=== PATIENT | male | born 1950 | race Hispanic/Latino ===

== ENCOUNTER 2020-01-21 20:53 | Emergency (ER) | payer OTHER, SELFPAY ==
[~2020-01-21 20:53] MED LIST: Iopamidol 370 76% 100 ML VIAL ONE
[2020-01-21] MEDS ORDERED: Octreotide Acetate 100 MCG/ML VIAL ONE (21:20)
[2020-01-21] MEDS ORDERED: Ondansetron PF 4 MG/2 ML Vial ONE (21:20)
[2020-01-21] MEDS ORDERED: Pantoprazole 40 MG VIAL ONE (21:20)
[2020-01-21 21:32] LABS: #Basophils 0.1 thou/uL (0.0-0.2); #Eosinphils 0.1 thou/uL (0.0-0.7); #Lymphocytes 1.6 thou/uL (1.20-3.40); #Monocytes 0.7 thou/uL (0.11-0.59); #Neutrophils 10.3 thou/uL (1.40-6.50); %Basophils 0.7 % (0.0-1.0); %Eosinophils 0.4 % (0.0-10.0); %Lymphocytes 12.7 % (21.0-51.0); %Monocytes 5.2 % (0.0-10.0); %Neutrophils 80.9 % (42.0-75.0); Hemoglobin 10.3 g/dL (14.0-18.0); INR-International Normal Ratio 1.1; Mean Corpuscular Hemoglobin 31.7 pg (27.0-31.0); Mean Platelet Volume 8.1 fL (7.4-10.4); Platelet Count 239 thou/uL (130-400); Prothrombin Time 13.7 sec (12.0-14.7); RBC Distribution Width 12.3 % (11.5-14.5); Red Blood Cell (RBC) Count 3.24 mill/uL (4.70-6.10); White Blood Cell (WBC) Count 12.7 thou/uL (4.8-10.8)
[2020-01-21 21:43] LABS: ALT (SGPT) 102 U/L (8-55); AST (SGOT) 70 U/L (5-34); Albumin 3.4 g/dL (3.4-4.8); Alkaline Phosphatase 101 U/L (40-110); Anion Gap 18 mmol/L (10-20); BUN (Urea Nitrogen) 27 mg/dL (8.4-25.7); Bilirubin, Total 0.3 mg/dL (0.2-1.2); Calc. Creatinine Clearance 0 mL/min (70-130); Calcium 7.9 mg/dL (7.8-10.44); Carbon Dioxide 19 mmol/L (23-31); Chloride 108 mmol/L (98-107); Estimated GFR-MDRD Greater than 90; Globulin 2.6 g/dL (2.4-3.5); Glucose 216 mg/dL (80-115); Lipase 20 U/L (8-78); Potassium 3.9 mmol/L (3.5-5.1); Sodium 141 mmol/L (136-145)
--- NOTE | 2020-01-22 07:07 | RAD ---
PORTABLE CHEST: Date: 01/21/2020 An AP portable film at 2124 hours is compared with an 12/31/2015 study. The heart is normal in size. The lungs are clear with no major infiltrate or effusion seen. Some old, healed rib fractures are noted on the right. The mediastinum shows no widening or shift. IMPRESSION: No acute thoracic findings. POS: HOME
--- NOTE | 2020-01-22 07:13 | CT ---
CT ABDOMEN AND PELVIS WITH CONTRAST: Date: 01/21/[address] of the abdomen and pelvis was done after giving IV contrast in this patient with abdominal distention and bloating. FINDINGS: The lung bases are clear. The stomach is mildly to moderately distended by fluid and foodstuff. There is some reflux into the lower esophagus. The wall of the distal esophagus may be minimally thickened . There is no significant distention of small bowel, though some loops are fluid-filled. This is a no nspecific finding and could be normal, or signify mild enteritis. Diffuse fatty infiltration of the l iver is seen. The pancreas, spleen, adrenal glands, kidneys, and abdominal aorta showed no acute find ings. No free air or free fluid was seen. The appendix appears normal. The colon shows no inflammatory jackson ges around it. CT of the pelvis showed no pelvic masses, fluid collections, or inflammatory changes. Degenerative changes are seen in the spine. IMPRESSION: 1. Gastric distention with a considerable amount of fluid within it. 2. Nonspecific bowel gas pattern with some fluid, but no distention. 3. Normal appearing appendix. 4. Gastroesophageal reflux. 5. Diffuse fatty infiltration of the liver. Preliminary report called to Dr. Perez at 2219 hours on 01/21/2020. CODE CR. POS: HOME
== END 2020-01-21 23:25 | disposition short-term general hospital (02) ==
LOC: BURERS 20:53
DX: K92.2 Gastrointestinal hemorrhage, unspecified (principal); F10.220 Alcohol dependence with intoxication, uncomplicated; R55 Syncope and collapse; F17.210 Nicotine dependence, cigarettes, uncomplicated
CPT/HCPCS: 36415; 36430; 71045; 74177; 80053; 82274; 83690; 84484; 85025; 85610; 86850; 86900; 86901; 93005; 96365; 96366; 96375; 96376; C9113; J2354; J2405; P9016; Q9967

== ENCOUNTER 2023-11-16 09:22 | Outpatient (CLI) | payer OTHER ==
[2023-11-16 10:11] LABS: #Basophils 0.2 thou/uL (0.0-0.2); #Eosinphils 0.4 thou/uL (0.0-0.7); #Neutrophils 4.4 thou/uL (1.40-6.50); %Basophils 2.4 % (0.0-1.0); %Eosinophils 5.4 % (0.0-10.0); %Lymphocytes 24.9 % (21.0-51.0); %Monocytes 12.3 % (0.0-10.0); Hematocrit 36.6 % (42.0-52.0); Hemoglobin 11.5 g/dL (14.0-18.0); Mean Corpuscular HGB CONC 31.5 g/dL (32.0-36.0); Mean Corpuscular Hemoglobin 31.6 pg (27.0-31.0); Mean Platelet Volume 6.7 fL (7.4-10.4); Platelet Count 257 10x3/uL (130-400); Red Blood Cell (RBC) Count 3.65 mill/uL (4.70-6.10); White Blood Cell (WBC) Count 7.9 10x3/uL (4.8-10.8)
[2023-11-16 10:12] LABS: INR-International Normal Ratio 1.7; MDiff Complete? YES; Manual Diff?? NO; Prothrombin Time 20.3 sec (12.0-14.7)
[2023-11-16 10:52] LABS: ALT (SGPT) 38 U/L (8-55); AST (SGOT) 90 U/L (5-34); Albumin 2.5 g/dL (3.4-4.8); Alkaline Phosphatase 169 U/L (40-110); Anion Gap 11 mmol/L (10-20); BUN (Urea Nitrogen) 6 mg/dL (8.4-25.7); Bilirubin, Total 1.8 mg/dL (0.2-1.2); Calc. Creatinine Clearance 0 mL/min (70-130); Calcium 8.1 mg/dL (7.8-10.44); Carbon Dioxide 21 mmol/L (23-31); Chloride 110 mmol/L (98-107); Estimated GFR 97; Globulin 4.1 g/dL (2.4-3.5); Glucose 206 mg/dL (83-110); Potassium 3.7 mmol/L (3.5-5.1); Protein, Total 6.6 g/dL (5.8-8.1); Sodium 138 mmol/L (136-145)
[2023-11-16 18:34] LABS: Ferritin 109.84 ng/mL (22-322); HBCM Index 0.08 S/CO (0-0.79); HBsAg Index 0.27 S/CO (0-0.99); Hep A IgM AB NONREACTIVE (NonReactive); Hep A IgM S/CO 0.27 S/CO (0-0.79); Hep B Surf Ag NONREACTIVE S/CO (NonReactive); Hep C IgG Ab NONREACTIVE S/CO (NonReactive); Hep C Index 0.21 S/CO (0-0.79); Hepatitis B Core IgM Abs NONREACTIVE S/CO (NonReactive)
[2023-11-16 18:40] LABS: Iron 155 ug/dL (65-175); Iron Binding Capacity, Total 231 mcg/dL (261-462)
[2023-11-18 13:55] LABS: ANA Symphony (Qualitative) Negative (Negative); ANA Symphony (Quantitative) 0.4 Ratio (< 0.7 Negative); EliA Vaculitis New Method **** NEW METHOD ****
== END 2023-11-16 09:23 | disposition home or self-care (01) ==
LOC: BURLAB 09:22
PROVIDERS: ATTEND Physician Assistant Medical
DX: K74.60 Unspecified cirrhosis of liver (principal); R18.8 Other ascites; Z85.038 Personal history of other malignant neoplasm of large intestine
CPT/HCPCS: 36415; 80053; 80074; 82105; 82390; 82728; 83516; 83540; 83550; 85025; 85610; 86015; 86038; 86225